=== PATIENT | female | born 2000 | race Caucasian/White ===

== ENCOUNTER 2020-10-13 15:56 | Emergency (ER) | payer MEDICAID ==
[~2020-10-13] VITALS: Ht 162.6 cm; Wt 50.0 kg
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
--- NOTE | 2020-10-13 16:27 | NUR ---
REPORT TO LORI LARA.
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
--- NOTE | 2020-10-13 16:56 | NUR ---
Pt medicated and labs drawn.
--- NOTE | 2020-10-13 17:10 | NUR ---
Food tray brought into pt room with extra apple juice.
[2020-10-13 17:18] LABS: AMPHETAMINE SCREEN, URINE Negative (Negative); BARBITURATE SCREEN, URINE Negative (Negative); BENZODIAZEPINE SCREEN, URINE Negative (Negative); CANNABINOID SCREEN, URINE Negative (Negative); COCAINE SCREEN, URINE Negative (Negative); METHADONE SCREEN, URINE Negative (Negative); OPIATE SCREEN, URINE Negative (Negative)
[2020-10-13 17:19] LABS: BASOPHILS % (AUTO) 1 % (0-1); EOSINOPHILS % (AUTO) 5 % (1-7); LYMPHOCYTES % (AUTO) 6 % (22-44); MEAN CORPUSCULAR HEMOGLOBIN 33.1 pg (27.0-34.8); MEAN CORPUSCULAR HGB CONC 34.5 g/dL (32.4-35.8); MEAN PLATELET VOLUME 7.9 fL (7.4-10.4); MONOCYTES % (AUTO) 13 % (2-9); NEUTROPHILS % (AUTO) 76 % (42-75); PLATELET COUNT 177 x10^3/uL (130-400); RED CELL DISTRIBUTION WIDTH 15.7 % (9.6-15.2)
[2020-10-13 17:20] LABS: MD NO
[2020-10-13 17:30] LABS: ALANINE AMINOTRANSFERASE 23 U/L (12-78); ALBUMIN 3.9 g/dL (3.4-5.0); ANION GAP 8 mmol/L (5-15); CALCIUM 8.7 mg/dL (8.5-10.1); CHLORIDE 109 mmol/L (98-107); CREATININE 0.59 mg/dL (0.55-1.02)
[2020-10-13 17:35] LABS: SALICYLATE LEVEL < 1.7 mg/dL (2.8-20.0)
[2020-10-13 17:41] LABS: ALKALINE PHOSPHATASE 60 U/L (45-117); BILIRUBIN,TOTAL 0.7 mg/dL (0.2-1.0); TOTAL PROTEIN 6.7 g/dL (6.4-8.2)
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
--- NOTE | 2020-10-13 18:50 | NUR ---
report from shaun rn patient in room controlled for psychiatric precautions sitter within direct eyeline
--- NOTE | 2020-10-13 19:03 | NUR ---
Report given to LORI Diamond and care transferred.
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
--- NOTE | 2020-10-14 00:14 | NUR ---
TASK RN: PT. MEDICATED PER MAR; PT. REPORTS SHE IS UNABLE TO SLEEP WITHOUT MEDS.
--- NOTE | 2020-10-14 01:24 | NUR ---
Patient ate 100% of provided turkey sandwich Reports "I feel much better. thank you." Updated on estimated poc- patient agreeable.
--- NOTE | 2020-10-14 04:05 | NUR ---
REPORT TO YARELIS SANDOVAL.
--- NOTE | 2020-10-14 04:11 | NUR ---
ASSUMING CARE OF PT. REPORT FROM RYAN SANDOVAL. PT ASLEEP WITH EVEN AND UNLABORED RESPIRATIONS. SITTER AT BEDSIDE. BELONGINGS IN LOCKER.
--- NOTE | 2020-10-14 04:58 | NUR ---
PT ASLEEP WITH EVEN AND UNLABORED RESPIRATIONS. SITTER AT BEDSIDE. SI PRECAUTIONS IN PLACE.
--- NOTE | 2020-10-14 06:04 | NUR ---
PT ASLEEP WITH EVEN AND UNLABORED RESPIRATIONS. SITTER AT BEDSIDE. SI PRECAUTIONS IN PLACE.
--- NOTE | 2020-10-14 07:19 | NUR ---
Note marck in EDM - 10/14/20 at 0721 by DAJUAN PT AWAKE, VSS, ANU. PT REQUESTING HOME MEDICATION ON MED REC. THIS RN SPOKE TO DR. MOTTA. SEE EMAR FOR ORDERED MEDICATION.
--- NOTE | 2020-10-14 07:22 | NUR ---
PT ASLEEP WITH EVEN AND UNLABORED RESPIRTIONS.
[2020-10-14] MEDS ORDERED: DULOXETINE 30 MG CAPSULE.DR PO ONE (07:30)
--- NOTE | 2020-10-14 07:50 | NUR ---
PT AWAKENS FOR VITALS, DENIES SI/HI, VSS.
--- NOTE | 2020-10-14 08:39 | NUR ---
BREAKFAST GIVEN TO PT. PT AWOKEN BRIEFLY AND RETURNED TO SLEEP WITH EVEN AND UNLABORED RESPIRATIONS. ANU.
--- NOTE | 2020-10-14 08:41 | NUR ---
SITTER AT BEDSIDE. SI PRECAUTIONS IN PLACE.
--- NOTE | 2020-10-14 09:14 | NUR ---
PT ASLEEP WITH EVEN AND UNLABORED RESPIRATIONS. SITTER AT BEDSIDE.
--- NOTE | 2020-10-14 09:35 | NUR ---
PT ASLEEP WITH EVEN AND UNLABORED RESPIRATIONS. SITTER AT BEDSIDE.
--- NOTE | 2020-10-14 10:37 | NUR ---
PT ASLEEP WITH EVEN AND UNLABORED RESPIRATIONS. SURY. ANU.
--- NOTE | 2020-10-14 11:34 | NUR ---
PT ASLEEP WITH EVEN AND UNLABORED RESPIRATIONS. SURY. ANU.
--- NOTE | 2020-10-14 11:59 | NUR ---
daisha mahoney and eliot social work to bedside for evaluation.
--- NOTE | 2020-10-14 12:47 | NUR ---
all pt belongings returned to pt. pt given d/c instructions and taxi voulcher for well care.
[2020-10-14 13:16] VITALS: BP 112/67
--- NOTE | 2020-10-14 13:17 | NUR ---
PT WITH STEADY GAIT TO DC WITH ALL BELONGINGS, MARGI BOYD, AND HIRAL PAPERWORK
== END 2020-10-14 13:18 | disposition home or self-care (01) ==
LOC: ED 16:58
DX: R45.851 Suicidal ideations (principal); F41.9 Anxiety disorder, unspecified; R00.0 Tachycardia, unspecified; Z20.822 Contact with and (suspected) exposure to COVID-19
CPT/HCPCS: 36415; 80053; 80299; 80307; 80320; 80329; 84443; 84703; 85025; 87426; 93005; 99285; G0480